=== PATIENT | female | born 1980 | race Caucasian/White ===

== ENCOUNTER 2019-07-29 18:22 | Emergency (ER) | payer OTHER, SELFPAY ==
[2019-07-29 18:39] VITALS: BP 158/87; PULSE 87; RESP 18; TEMP 37.4; O2SAT 96
--- NOTE | 2019-07-29 18:52 | ED.GENADULT ---
HPI - General Adult General Chief complaint: Extremity Problem,Nontraumatic Stated complaint: back and neck pain down right arm Source: patient Mode of arrival: ambulatory Limitations: no limitations History of Present Illness HPI narrative: Kiana is a 39F with a past medical history of ADHD, anxiety, depression, cervical spine osteoarthritis and hypertension presented to the emergency department with neck and shoulder pain. pain started insidiously 3 weeks ago. She denies any trauma. She has pain in her lower neck that radiates out to the superior/posterior portion of her right shoulder. Pain is described as shooting pain from her neck down into her fingers. It is positional. It is worse when her arm is abducted, and externally rotated as well as when she lays on it. she has some transient numbness because away with position changes. She does feel like she has some weakness. She denies any new headaches, vision changes, chest pain, shortness of breath and GI symptoms. MD complaint: Neck and shoulder pain Related Data Home Medications Medication Instructions Recorded Confirmed alprazolam 2 mg PO TID 07/29/19 07/29/19 cyclobenzaprine 5 mg PO HS 07/29/19 07/29/19 dexmethylphenidate 10 mg PO TID 07/29/19 07/29/19 duloxetine 60 mg PO DAILY 07/29/19 07/29/19 metoprolol ta-hydrochlorothiaz 1 tablet PO BID 07/29/19 07/29/19 Allergies Allergy/AdvReac Type Severity Reaction Status Date / Time No Known Allergies Allergy Verified 07/29/19 18:36 Review of Systems Constitutional: Constitutional: Denies chills and Denies fever(s) Eyes: Eyes: Denies change in vision ENT: Denies Normal hearing present, Denies vertigo and Denies dizziness Cardiovascular: Cardiovascular: Denies chest pain with activity, Denies syncope, Denies edema and Denies dyspnea on exertion Respiratory: Respiratory: Denies cough Gastrointestinal: Gastrointestinal: Denies abdominal pain, Denies diarrhea, Denies nausea and Denies vomiting Genitourinary: Genitourinary: Denies dysuria Musculoskeletal: Musculoskeletal: Denies deformity Neurologic: Denies Normal hearing present, Denies behavioral changes, Denies confusion, Denies vertigo, Denies dizziness, Denies syncope and Denies loss of vision Psychiatric: Psychiatric: Denies behavioral changes Endocrine: Endocrine: Reports no additional endocrine complaints Hematologic/Lymphatic: Hematologic/Lymphatic: Reports no additional hematologic/lymphatic complaints Allergic/Immunologic: Allergic/Immunologic: Reports no additional allergic/immunologic complaints Exam Const: General: cooperative, healthy appearing, comfortable, no acute distress, well developed, alert, awake and Physically active; No confusion Orientation/consciousness: oriented to person, oriented to place, oriented to time and No confusion HENMT: Head: normal to inspection, normocephalic and atraumatic Ears: hearing grossly normal bilaterally and external ears normal General nose exam: Normal external nose present Eyes: General: appearance normal, both eyes and all related structures Periorbital: periorbital findings normal Sclera: sclerae normal Pupils: Equal, round and reactive pupils present Neck: Neck: normal visual inspection Resp: Effort & Inspection: normal respiratory effort, able to speak in complete sentences and no respiratory distress Cardio: Jugular venous distension: no JVD Rate: regular rate Rhythm: regular rhythm Skin: General skin exam: normal color and no rashes or lesions noted Neuro: General: oriented to person, oriented to place, oriented to time and No confusion Cranial nerves: Yes Equal, round and reactive pupils present and No Normal hearing present Other: 5/5 administrator of home health strength bilaterally. 5/5 strength in elbow flexion and extension bilaterally, 5/5 strength in right shoulder in all 6 planes of motion. Normal range of motion the right shoulder. Positive Spurling test on the right. Peripheral sensation inta
[2019-07-29 19:01] VITALS: RESP 20
== END 2019-07-29 19:02 | disposition home or self-care (01) ==
PROVIDERS: Emergency Provider Family Medicine; PCP Internal Medicine
DX: M54.12 Radiculopathy, cervical region (principal)
CPT/HCPCS: 99281; 99282

== ENCOUNTER 2022-10-22 10:31 | Outpatient (CLI) | payer OTHER, SELFPAY ==
--- NOTE | ~2022-10-22 | XR_ITS ---
Clinical Indication: Shortness of breath PA and lateral views of the chest: Comparison: None Findings: The lungs are clear, without evidence of focal consolidation or pleural effusion. Cardiome diastinal silhouette is within normal limits. Bones and soft tissues are unremarkable. Impression: Normal chest. Reviewed, dictated and finalized at [facility]. Impression: Normal chest.
== END 2022-10-22 10:32 | disposition home or self-care (01) ==
PROVIDERS: PCP Nurse Practitioner Family; Visit Provider Nurse Practitioner Family
DX: R05.9 Cough, unspecified (principal)
CPT/HCPCS: 71046

== ENCOUNTER 2023-08-13 09:22 | Outpatient (CLI) | payer OTHER, SELFPAY ==
[2023-08-13 14:18] LABS: Basophils Absolute Auto 0.1 K/mm3 (0.0-0.1); Basophils Percent Auto 0.7 % (0.2-1.2); Eosinophils Absolute Auto 0.2 K/mm3 (0-0.3); Eosinophils Percent Auto 1.7 % (0-4.4); Hematocrit 40.7 % (37.0-47.0); Hemoglobin 13.1 g/dL (12.0-15.0); Immature Granulocyte Absolute 0.04 K/mm3 (0.00-0.031); Immature Granulocyte Percent A 0.5 % (0-0.5); Lymphocytes Absolute Auto 1.88 K/mm3 (0.9-3.2); Lymphocytes Percent Auto 21.6 % (18.3-44.2); Mean Corpuscular HGB Conc 32.2 g/dl (32-36); Mean Corpuscular Hemoglobin 26.8 pg (26-34); Mean Corpuscular Volume 83.2 fl (80-100); Mean Platelet Volume 10.8 fl (7.4-10.4); Monocytes Absolute Auto 0.6 K/mm3 (0.1-0.6); Monocytes Percent Auto 6.4 % (2.6-8.5); Neutrophils Percent Auto 69.1 % (45.5-73.1); Platelet Count Result 246 k/mm3 (150-375); Red Blood Count 4.89 M/mm3 (4.2-5.4); Red Cell Distribution Width 14.2 % (11.5-14.5); White Blood Count 8.7 K/mm3 (4.5-10.0)
[2023-08-13 15:03] LABS: Anion Gap 3 mmol/L (8-16); Blood Urea Nitrogen 17 mg/dL (7-17); Calcium 8.9 mg/dL (8.4-10.2); Carbon Dioxide 34 mmol/L (22-30); Chloride 98 mmol/L (98-107); Cholesterol 215 mg/dL (0-200); Estimated Glomerular Filt Rate > 60; Glucose 155 mg/dL (65-110); HDL Direct 41 mg/dL; Potassium 2.9 mmol/L (3.4-5.0); Sodium 135 mmol/L (137-145); Triglycerides 384 mg/dL (<150)
[2023-08-13 15:14] LABS: LDL Cholesterol Direct 102 mg/dL
[2023-08-13 15:53] LABS: Vitamin D 25 Hydroxy < 12.8 ng/mL
== END 2023-08-13 09:23 | disposition home or self-care (01) ==
LOC: ANHGOSHLAB 09:24
PROVIDERS: PCP Nurse Practitioner Family; Visit Provider Nurse Practitioner Family
DX: R73.01 Impaired fasting glucose (principal); F41.9 Anxiety disorder, unspecified; I10 Essential (primary) hypertension; E66.9 Obesity, unspecified; Z79.899 Other long term (current) drug therapy
CPT/HCPCS: 36415; 80048; 80061; 82306; 83036; 84443; 85025

== ENCOUNTER 2024-01-07 09:13 | Outpatient (CLI) | payer OTHER, SELFPAY ==
[2024-01-07 13:14] LABS: Alanine Aminotransferase 17 U/L (6-35); Albumin Level 4.3 g/dL (3.5-5.1); Alkaline Phosphatase 56 U/L (38-126); Anion Gap 10 mmol/L (4-12); Aspartate Amino Transferase 32 U/L (14-36); Bilirubin,Total 0.6 mg/dL (0.2-1.3); Blood Urea Nitrogen 20 mg/dL (7-17); Carbon Dioxide 35 mmol/L (22-30); Chloride 95 mmol/L (98-107); Cholesterol 200 mg/dL (0-200); Estimated Glomerular Filt Rate 60; Glucose 93 mg/dL (65-110); HDL Direct 59 mg/dL; Potassium 3.5 mmol/L (3.4-5.0); Sodium 140 mmol/L (137-145); Triglycerides 255 mg/dL (<150)
[2024-01-07 13:25] LABS: LDL Cholesterol Direct 101 mg/dL
[2024-01-07 13:59] LABS: Creatinine Urine 308.3 mg/dL
[2024-01-07 14:02] LABS: MALB Creatinine Ratio 6.2 mg/g (0-30)
[2024-01-07 14:40] LABS: Thyroid Stimulating Hormone Reflex 0.994 uIU/mL (0.465-4.68)
[2024-01-07 16:10] LABS: Hemoglobin A1C 7.2 % (<5.7)
== END 2024-01-07 09:14 | disposition home or self-care (01) ==
LOC: ANHGOSHLAB 09:14
PROVIDERS: PCP Nurse Practitioner Family; Visit Provider Nurse Practitioner Family
DX: E11.9 Type 2 diabetes mellitus without complications (principal); I10 Essential (primary) hypertension; E78.2 Mixed hyperlipidemia
CPT/HCPCS: 36415; 80053; 80061; 82043; 83036; 84443

== ENCOUNTER 2024-09-22 12:32 | Outpatient (CLI) | payer OTHER, SELFPAY ==
--- OUTSIDE RECORDS SUMMARY | 2024-09-22 13:24 | XMS_ITS | Referral Summary ---
Author Organization [facility] Address [address] [place] [id number] Care Team Providers Care Web Site Manager Name Role Phone Brad Estrada MD Primary Care Provider Allergies No known active allergies Medications cyclobenzaprin e (FLEXERIL) 5 mg tablet cyclobenzaprine 5 mg tablet TAKE 1 TABLET BY MOUTH TWICE A DAY NEEDED Active ALPRAZolam (XANAX) 2 mg tablet alprazolam 2 mg tablet TAKE 1 TABLET BY MOUTH THREE TIMES A DAY Active DULoxetine DR (CYMBALTA) 60 mg capsule Take 60 mg by mouth every morning 08/28/19 20 Active metoprolol ta-hydrochloro thiaz (LOPRESSOR HCT) 50-25 mg per tablet metoprolol tartrate 50 mg-hydrochlorothiazid e 25 mg tablet TAKE 1 TABLET BY MOUTH TWICE A DAY Active dexmethylpheni date XR (FOCALIN XR) 30 mg 24 hr capsule dexmethylphenidate ER 30 mg capsule,extended release [id number] Act vishal cetirizine (ZyrTEC) 10 mg tablet Take 10 mg by mouth daily Active famotidine (PEPCID) 10 mg tablet Take 10 mg by mouth 2 (two) times a day Active acetaminophen (TYLENOL) 325 mg tablet Take 650 mg by mouth every 6 (six) hours as needed for pain Active ibuprofen (ibuprofen) 200 mg tab/cap Take by mouth every 6 (six) hours as needed for pain Active methylPREDNISo lone (MEDROL DOSEPACK) 4 mg Dosepack Take as directed on package 1 packet 12/22/19 20 Active Active Problems Problem Noted Date Diagnosed Date HTN (hypertension) 09/09/2019 Migraine 09/05/2018 Bipolar I disorder 11/07/2013 Overview (09/28/2016): Bipolar 1 disorder Resolved Problems Problem Noted Date Diagnosed Date Resolved Date Depressive disorder 09/09/2019 09/09/19 20 Anterior knee pain 11/07/2013 0 Overview (09/28/2016): Right anterior knee pain Social History Tobacco Use Types Packs/Day Years Used Date Smoking Tobacco: Every Day Cigarettes Smokeless Tobacco: Never Comments:Smoking History Pac ks/day: 10 Packs Alcohol Use Standard Drinks/Week Comments Yes 1 (1 standard drink = 0.6 oz pur e alcohol) Personal Safety Answer Date Recorded Getting School Help Needed Not on file 09/07 Comments Unknown Sex and Gender Information Value Date Recorded Sex Assigned at Not on file 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 Gender Identity Not on file Sexual Orientation Not on file Last Filed Vital Signs Vital Sign Reading Time Taken Comments Blood Pressure 122/88 12/22/2019 7:37 AM CDT Pulse 87 12/22/2019 7:37 AM CDT Temperature 36.6 C (97.8 F) 12/22/2019 7:37 AM CDT Respiratory Rate - - Oxygen Saturation - - Inhaled Oxygen Concentration - - Weight 125.2 kg (276 lb) 12/22/2019 7:37 AM CDT Height 172.7 cm (5' 8 ) 12/22/2019 7:37 AM CDT Body Mass Index 41.97 12/22/2019 7:37 AM CDT Plan of Treatment Not on file Insurance [facility] CHO[facility] PLUS Care Teams Web Site Manager Relationship Specialty Start Date End Date Brad Estrada MD [id number] [facility] [address] [place] [address] PCP - General Internal Medicine 09/08/19
--- OUTSIDE RECORDS SUMMARY | 2024-09-22 13:24 | XMS_ITS | Clinical Summary ---
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
[2024-09-22 14:30] LABS: Rheumatoid Factor < 12.0 IU/ML (<12)
[2024-09-22 14:40] LABS: Alanine Aminotransferase 19 U/L (6-35); Albumin Level 4.3 g/dL (3.5-5.1); Alkaline Phosphatase 65 U/L (38-126); Anion Gap 10 mmol/L (4-12); Aspartate Amino Transferase 40 U/L (14-36); Blood Urea Nitrogen 23 mg/dL (7-17); Calcium 9.6 mg/dL (8.4-10.2); Carbon Dioxide 33 mmol/L (22-30); Chloride 94 mmol/L (98-107); Cholesterol 179 mg/dL (0-200); Estimated Glomerular Filt Rate 58; Glucose 150 mg/dL (65-110); HDL Direct 41 mg/dL; Potassium 2.7 mmol/L (3.4-5.0); Sodium 137 mmol/L (137-145); Triglycerides 343 mg/dL (<150)
[2024-09-22 14:42] LABS: LDL Cholesterol Direct 79 mg/dL
[2024-09-22 17:33] LABS: Hemoglobin A1C 8.9 % (<5.7)
[2024-09-24 03:28] LABS: ANA Cascade Screen NEGATIVE (NEGATIVE)
== END 2024-09-22 12:33 | disposition home or self-care (01) ==
LOC: ANHGOSHLAB 12:33
PROVIDERS: PCP Nurse Practitioner Family; Visit Provider Nurse Practitioner Family
DX: E78.5 Hyperlipidemia, unspecified (principal); E03.9 Hypothyroidism, unspecified; E11.9 Type 2 diabetes mellitus without complications; I10 Essential (primary) hypertension; M25.50 Pain in unspecified joint
CPT/HCPCS: 36415; 80053; 80061; 83036; 83516; 84443; 86038; 86225; 86235; 86430

== ENCOUNTER 2025-04-09 09:24 | Outpatient (CLI) | payer OTHER, SELFPAY ==
--- OUTSIDE RECORDS SUMMARY | 2025-04-09 09:49 | XMS_ITS | Clinical Summary ---
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
[2025-04-09 13:00] LABS: Alanine Aminotransferase 17 U/L (6-35); Albumin Level 4.1 g/dL (3.5-5.1); Alkaline Phosphatase 65 U/L (38-126); Anion Gap 7 mmol/L (4-12); Aspartate Amino Transferase 34 U/L (14-36); Bilirubin,Total 0.7 mg/dL (0.2-1.3); Blood Urea Nitrogen 18 mg/dL (7-17); Calcium 9.2 mg/dL (8.4-10.2); Carbon Dioxide 28 mmol/L (22-30); Chloride 100 mmol/L (98-107); Cholesterol 181 mg/dL (0-200); Estimated Glomerular Filt Rate 56; Glucose 131 mg/dL (65-110); HDL Direct 43 mg/dL; Potassium 3.5 mmol/L (3.4-5.0); Sodium 135 mmol/L (137-145); Total Protein 7.5 g/dL (6.3-8.2); Triglycerides 187 mg/dL (<150)
[2025-04-09 13:32] LABS: Hemoglobin A1C 5.9 % (<5.7)
[2025-04-09 14:08] LABS: Thyroid Stimulating Hormone 1.840 uIU/mL (0.465-4.680)
== END 2025-04-09 09:25 | disposition home or self-care (01) ==
LOC: ANHGOSHLAB 09:25
PROVIDERS: PCP Nurse Practitioner Family; Visit Provider Nurse Practitioner Family
DX: E03.9 Hypothyroidism, unspecified (principal); E11.9 Type 2 diabetes mellitus without complications; E87.6 Hypokalemia; E78.5 Hyperlipidemia, unspecified
CPT/HCPCS: 36415; 80053; 80061; 83036; 84443